=== PATIENT | male | born 2000 | race Caucasian/White ===

== ENCOUNTER 2024-09-21 23:37 | Emergency (ER) | payer SELFPAY ==
[2024-09-22 00:36] LABS: MONO NEGATIVE CONTROL ZONE White (Negative) (White); MONO POSITIVE CONTROL Pink Line (Positive) (PINK/RED); Mononucleosis NEGATIVE (NEGATIVE)
== END 2024-09-22 00:49 | disposition home or self-care (01) ==
LOC: CSHERS 23:37
DX: B34.9 Viral infection, unspecified (principal)
CPT/HCPCS: 36415; 86308; 99283